=== PATIENT | female | born 1985 | race Caucasian/White ===

== ENCOUNTER 2019-07-20 08:43 | Emergency (ER) | payer OTHER ==
[2019-07-20 08:49] VITALS: BP 134/78
--- NOTE | 2019-07-20 09:43 | ER Document Report ---
HPI - HPI Time Seen by Provider: 07/20/19 09:29 Context: Patient is a 33-year-old female who presents to the emergency department with a chief complaint of right shoulder pain. Patient states that her symptoms started last night. She states that she thought she maybe had slept wrong. Denies any new injury. States only thing that she has been doing is sewing curtains. States that she has an old shoulder injury from a while back when she was in the . She also also history of low back and hip injuries. She does not take any medications. Denies any other past medical history. - ROS Systems Reviewed and Negative: Yes All other systems reviewed and negative - CONSTITUTIONAL Constitutional: DENIES: Fever, Chills - CARDIOVASCULAR Cardiovascular: DENIES: Chest pain - RESPIRATORY Respiratory: DENIES: Trouble Breathing, Coughing - MUSCULOSKELETAL Musculoskeletal: REPORTS: Extremity pain - Right shoulder. DENIES: Back Pain, Neck Pain, Swelling - DERM Skin Color: Normal Skin Problems: None Past Medical History - General Information source: Patient - Social History Smoking Status: Never Smoker Family History: Reviewed & Not Pertinent Vertical Provider Document - CONSTITUTIONAL Agree With Documented VS: Yes Exam Limitations: No Limitations General Appearance: No Apparent Distress - HEENT HEENT: Atraumatic, Normocephalic, PERRLA - NECK Neck: Normal Inspection - RESPIRATORY Respiratory: No Respiratory Distress - CARDIOVASCULAR Cardiovascular: Regular Rate, Regular Rhythm Pulses: Normal: Radial - MUSCULOSKELETAL/EXTREMETIES Musculoskeletal/Extremeties: Tender - Anterior right shoulder, No Edema. negative: FROM - Decreased to right shoulder - NEURO Level of Consciousness: Awake, Alert, Appropriate Motor/Sensory: No Motor Deficit, No Sensory Deficit - DERM Integumentary: Warm, Dry, No Rash Course - Re-evaluation Re-evalutation: 07/20/19 10:16 Patient states that she wants to have a test done before she receives these Decadron and Toradol. Patient states that she is attempting to get . Her last menstrual cycle was June 29. We will send her urine hCG. X-ray is unremarkable. 07/20/19 10:58 hCG is negative. We will start the patient on Flexeril, as she states that she would much rather be on Flexeril instead of Robaxin. I offered the patient a sling for comfort. She refused. Patient will follow-up with her primary care provider. I have a low suspicion for any life-threatening etiology at this time. Follow-up precautions were given. Verbal discharge instructions were given to the patient. They verbalized understanding. They are stable for discharge. - Vital Signs Vital signs: Temp Pulse Resp BP Pulse Ox 97.8 F 77 16 134/78 H 99 07/20/19 08:48 07/20/19 08:48 07/20/19 08:48 07/20/19 08:48 07/20/19 08:48 Discharge - Discharge Clinical Impression: Right shoulder pain Qualifiers: Chronicity: acute Qualified Code(s): M25.511 - Pain in right shoulder Condition: Stable Disposition: HOME, SELF-CARE Additional Instructions: You were seen today in the emergency department for right shoulder pain. Your x-ray is normal. You received a steroid injection here in the emergency department. Follow-up with your primary care provider. See if you can get a referral for physical therapy. Take medication as needed. Use a sling as needed, but make sure you exercise your shoulder joint. Prescriptions: Cyclobenzaprine HCl [Flexeril 10 mg Tablet] 10 mg PO TIDP PRN #15 tab PRN Reason: Referrals: LUDY SOLORIO MD [Primary Care Provider] - Follow up in 1 week
[2019-07-20] MEDS ORDERED: KETOROLAC TROMETHAMINE 60 MG/2 ML SDV IM ONE (09:55)
[2019-07-20] MEDS ORDERED: DEXAMETHASONE SOD PHOS INJ 10 MG/1 ML VIAL IM ONE (09:55)
--- NOTE | 2019-07-20 09:58 | RADIOLOGY REPORT (SQ) ---
EXAM DESCRIPTION: SHOULDER RIGHT 2 OR MORE VIEWS IMAGES COMPLETED DATE/TIME: 07/20/2019 9:41 am REASON FOR STUDY: right shoulder pain COMPARISON: None. NUMBER OF VIEWS: Three views. TECHNIQUE: Internal rotation, external rotation, and Y view images acquired of the right shoulder. LIMITATIONS: None. FINDINGS: MINERALIZATION: Normal. BONES: No acute fracture. No worrisome bone lesions. No significant osteophytes. GLENOHUMERAL JOINT: No significant findings. ACROMIOCLAVICULAR JOINT: No large osteophytes. SOFT TISSUES: No calcifications. VISUALIZED RIBS, SPINE, AND LUNG: No other significant finding. OTHER: No other significant finding. IMPRESSION: NEGATIVE STUDY OF THE RIGHT SHOULDER. NO EXPLANATION FOR PAIN. TECHNICAL DOCUMENTATION: JOB ID: [id number] 2010 [employer]- All Rights Reserved Reading location - IP/workstation name: [email or web address]
== END 2019-07-20 11:10 | disposition home or self-care (01) ==
LOC: ER 08:43
DX: M25.511 Pain in right shoulder (principal)
CPT/HCPCS: 99283; 96372; 81025; 73030; J1885; J1100